=== PATIENT | male | born 1995 | race Caucasian/White ===

== ENCOUNTER 2019-01-28 14:24 | Emergency (ER) | payer OTHER ==
[~2019-01-28] VITALS: Ht 175.3 cm; Wt 74.6 kg
[2019-01-28] MEDS ORDERED: LIDOCAINE VISCOUS 2% SOLN 15ML UDC PO ONE (16:30)
[2019-01-28 17:30] VITALS: BP 139/83
[2019-01-28] MEDS ORDERED: LIDO1SOL8 PO (17:47)
== END 2019-01-28 17:53 | disposition home or self-care (01) ==
LOC: M ED 14:24
DX: T18.9XXA Foreign body of alimentary tract, part unspecified, initial encounter (principal); W57.XXXA Bitten or stung by nonvenomous insect and other nonvenomous arthropods, initial encounter; X58.XXXA Exposure to other specified factors, initial encounter; F17.200 Nicotine dependence, unspecified, uncomplicated

== ENCOUNTER → 2022-02-28 | Outpatient (CLI) | payer OTHER ==
[~2022-02-28] MED LIST: LIDO2SOL17 PO
== END ==
LOC: M CARPUL 08:21
PROVIDERS: ATTEND Internal Medicine Cardiovascular Disease
DX: R93.1 Abnormal findings on diagnostic imaging of heart and coronary circulation (principal); R07.9 Chest pain, unspecified